=== PATIENT | female | born 1965 | race Caucasian/White ===

== ENCOUNTER 2017-06-02 19:39 | Inpatient (IN) | payer SELFPAY ==
[~2017-06-02] VITALS: Ht 170.2 cm; Wt 46.4 kg
[~2017-06-02 19:39] MED LIST: ASPI81CH43 PO; CLOP75TA28 PO; HYDR-4683 PO; LEV500T PO; MET25T PO; NOR10T GT; Nitroglycerin SL; PAR20T GT; POTA10SO11 PO; TEMA15CA PO
[2017-06-02 23:12] LABS: Eosinophils # (auto) 0 uL; Lymphocytes # (auto) 0.8 uL; Monocytes # (auto) 1.1 uL; Nucleated Red Blood Cells % 0.1 %
[2017-06-02 23:14] LABS: Basophils # (auto) 0.3 uL; Basophils % (auto) 1.2 % (0.0-2.0); Hematocrit 41.1 % (36.0-46.0); Hemoglobin 13.2 g/dL (12.2-16.2); Lymphocytes % (auto) 3.4 % (10.0-50.0); Mean Corpuscular Hemoglobin 25.7 pg (28.0-32.0); Mean Corpuscular Hgb Conc. 32.1 g/dL (32.0-36.0); Mean Platelet Volume 7.6 fL (6.9-10.8); Monocytes % (auto) 4.7 % (0.0-12.0); Neutrophils # (auto) 21.9 uL; Neutrophils % (auto) 90.7 % (37.0-80.0); Platelet Count (auto) 273 10^3/uL (140-450); White Blood Cell 24.2 10^3/uL (4.4-10.8)
[2017-06-02] MEDS ORDERED: ONDANSETRON HCL 4 MG/2 ML VIAL IV ONE (23:15)
[2017-06-02] MEDS ORDERED: VANCOMYCIN 1GM/250ML 250 ML IV ONE (23:15)
[2017-06-02] MEDS ORDERED: HYDROmorphone HCL 2 MG/ML VL IV ONE (23:15)
[2017-06-02] MEDS ORDERED: cefTRIAXone 1GM/50ML D5W 50 ML IV ONE (23:15)
[2017-06-02 23:20] LABS: Red Cell Distribution Width 25.2 % (11.8-14.3)
[2017-06-02 23:39] LABS: Anisocytosis Moderate; Platelet Estimate Adequate
[2017-06-02 23:40] LABS: Hypersegmented Neutrophils Present; Microcytosis Moderate
[2017-06-02 23:42] LABS: Albumin 2.6 g/dL (3.4-5.0); BUN/Creatinine Ratio 22.7; Bilirubin, Total 0.5 mg/dL (0.2-1.0); Calcium 9.1 mg/dL (8.5-10.1); Total Protein 7.8 g/dL (6.4-8.2)
[2017-06-03 00:51] LABS: Urine Bilirubin Negative (Negative); Urine Blood TRACE /uL (Negative); Urine Color Yellow (Yellow); Urine Glucose Normal (Normal); Urine Hyaline Cast FEW /lpf (0 - 2); Urine Ketone TRACE (Negative); Urine Mucus FEW (None Seen); Urine Nitrite Negative (Negative); Urine RBC <1 /hpf (0 - 4); Urine Squamous Epithelial Cell FEW /hpf (<5)
[2017-06-03] MEDS ORDERED: POTASSIUM CHL 20 Meq TABLET PO ONE (01:45)
[2017-06-03] MEDS ORDERED: SODIUM CHLORIDE 0.9% 1,000 ML IV SCH (03:58)
[2017-06-03] MEDS ORDERED: ACETAMINOPHEN 325 MG TAB PO PRN (04:00)
[2017-06-03] MEDS ORDERED: ONDANSETRON HCL 4 MG/2 ML VIAL IV PRN (04:00)
[2017-06-03] MEDS ORDERED: TEMAZEPAM 15 MG CAP PO PRN (04:00)
[2017-06-03] MEDS ORDERED: SODIUM CHLORIDE 0.9% 500 ML IV ONE (04:00)
[2017-06-03] MEDS ORDERED: MORPHINE SULFATE 10 MG/ML INJ 1ML SDV IV PRN (04:00)
[2017-06-03] MEDS ORDERED: KETOROLAC TROMETH 30 MG/ML 1ML VIAL IV PRN (04:00)
[2017-06-03] MEDS ORDERED: NITROGLYCERIN 0.4 MG SL TAB SL PRN (04:00)
[2017-06-03] MEDS: HYDROcodone-ACET 5/325MG TAB PO PRN ×2 (08:54→21:47)
[2017-06-03] MEDS ORDERED: PARoxetine 20 MG TAB PO SCH (10:00)
[2017-06-03] MEDS ORDERED: CLOPIDOGREL BISULFATE 75 MG TAB PO SCH (10:00)
[2017-06-03] MEDS ORDERED: ENOXAPARIN SOD 30 MG/0.3 ML SYRINGE SC SCH (10:00)
[2017-06-03] MEDS ORDERED: ENOXAPARIN SOD 40 MG/0.4 ML SYRINGE SC SCH (10:00)
[2017-06-03] MEDS ORDERED: ASPirin 81 mg TAB PO SCH (10:00)
[2017-06-03] MEDS: METOPROLOL TARTRATE 25 MG TAB PO SCH ×2 (10:36→21:47)
[2017-06-03] MEDS: FAMOTIDINE 20 MG TAB PO SCH ×2 (10:37→21:46)
[2017-06-03] MEDS ORDERED: VANCOMYCIN PER PHARMACY 0 MG IV SCH (11:00)
[2017-06-03 11:24] LABS: Basophils # (auto) 0.1 uL; Hemoglobin 11.3 g/dL (12.2-16.2); Lymphocytes # (auto) 0.8 uL; Mean Platelet Volume 7.4 fL (6.9-10.8); Nucleated Red Blood Cells % 0.1 %; Platelet Count (auto) 261 10^3/uL (140-450); White Blood Cell 24.2 10^3/uL (4.4-10.8)
[2017-06-03 11:26] LABS: Basophils % (auto) 0.4 % (0.0-2.0); Eosinophils # (auto) 0.1 uL; Eosinophils % (auto) 0.3 % (0.0-7.0); Hematocrit 36.4 % (36.0-46.0); Lymphocytes % (auto) 3.5 % (10.0-50.0); Mean Corpuscular Hemoglobin 24.9 pg (28.0-32.0); Mean Corpuscular Hgb Conc. 31.1 g/dL (32.0-36.0); Mean Corpuscular Volume 80.2 fL (80.0-100.0); Monocytes # (auto) 1.2 uL; Monocytes % (auto) 4.8 % (0.0-12.0)
[2017-06-03 11:30] LABS: Red Cell Distribution Width 24.8 % (11.8-14.3)
[2017-06-03 12:02] LABS: BUN/Creatinine Ratio 20.5; Calcium 8.1 mg/dL (8.5-10.1)
[2017-06-03 12:07] LABS: Anisocytosis Moderate; Hypochromia Slight; Platelet Estimate Adequate
[2017-06-03 13:00] VITALS: BP 103/76
[2017-06-03] MEDS: SOD CHL 0.9%/ KCL 20MEQ 1,000 ML IV SCH (13:15)
[2017-06-03] MEDS: VANCOMYCIN 1GM/250ML 250 ML IV SCH ×2 (13:15→23:05)
[2017-06-03] MEDS ORDERED: SILVER SULFADIAZINE 1 % TOPICAL CREAM 50GM TOP SCH (16:00)
[2017-06-03 16:37] VITALS: BP 99/60
[2017-06-03] MEDS ORDERED: BOOST PLUS 8 ounce PO SCH (18:00)
[2017-06-03 20:00] VITALS: BP 113/80
[2017-06-03 21:23] VITALS: BP 113/80
[2017-06-03] MEDS ORDERED: cefTRIAXone 1GM/50ML D5W 50 ML IV SCH (22:00)
[2017-06-04] MEDS: SOD CHL 0.9%/ KCL 20MEQ 1,000 ML IV SCH (01:26)
[2017-06-04 04:31] VITALS: BP 111/76
[2017-06-04 05:17] LABS: Basophils # (auto) 0 uL; Basophils % (auto) 0.1 % (0.0-2.0); Eosinophils # (auto) 0 uL; Eosinophils % (auto) 0.2 % (0.0-7.0); Lymphocytes # (auto) 0.8 uL; Mean Platelet Volume 7.5 fL (6.9-10.8)
[2017-06-04 05:19] LABS: Hematocrit 37.6 % (36.0-46.0); Hemoglobin 11.6 g/dL (12.2-16.2); Lymphocytes % (auto) 3.8 % (10.0-50.0); Mean Corpuscular Hgb Conc. 30.9 g/dL (32.0-36.0); Monocytes # (auto) 1.3 uL; Monocytes % (auto) 6.2 % (0.0-12.0); Neutrophils # (auto) 19.3 uL; Neutrophils % (auto) 89.7 % (37.0-80.0); Nucleated Red Blood Cells % 0.2 %; Platelet Count (auto) 262 10^3/uL (140-450); White Blood Cell 21.5 10^3/uL (4.4-10.8)
[2017-06-04 05:24] LABS: Red Cell Distribution Width 25.1 % (11.8-14.3)
[2017-06-04 05:30] LABS: INR 1.07 (0.9-1.15); Partial Thromboplastin Time 33.8 sec (22.64-33.71); Prothrombin Time 11.7 sec (9.37-12.3)
[2017-06-04 05:49] LABS: Anisocytosis Moderate; Hypochromia Slight; Platelet Estimate Adequate
[2017-06-04 05:51] LABS: Bilirubin, Total 0.5 mg/dL (0.2-1.0); Potassium 4.1 mmol/L (3.5-5.1); Total Protein 6.5 g/dL (6.4-8.2)
[2017-06-04 06:24] LABS: Calcium 7.7 mg/dL (8.5-10.1)
[2017-06-04 07:10] LABS: BUN/Creatinine Ratio 14.3
[2017-06-04 09:00] VITALS: BP 122/75
== END 2017-06-04 09:00 | disposition left against medical advice (07) | DRG 872 ==
LOC: ER 19:41 → TELE 19:42 → TELE-WESTW 06-03 07:59 → TELE-E-ADS 06-03 07:59 → TELE-WESTW 06-03 11:25
PROVIDERS: ADMIT Nurse Practitioner; ATTEND Internal Medicine
DX: A41.9 Sepsis, unspecified organism (principal); E44.0 Moderate protein-calorie malnutrition; R64 Cachexia; E10.621 Type 1 diabetes mellitus with foot ulcer; E87.1 Hypo-osmolality and hyponatremia; L03.115 Cellulitis of right lower limb; N39.0 Urinary tract infection, site not specified; E87.6 Hypokalemia; F12.90 Cannabis use, unspecified, uncomplicated; F17.210 Nicotine dependence, cigarettes, uncomplicated; I10 Essential (primary) hypertension; I25.10 Atherosclerotic heart disease of native coronary artery without angina pectoris; L97.519 Non-pressure chronic ulcer of other part of right foot with unspecified severity; F32.9 Major depressive disorder, single episode, unspecified; Z59.0 Homelessness; Z95.5 Presence of coronary angioplasty implant and graft
CPT/HCPCS: 36415; 73620; 73700; 80048; 80053; 80202; 81001; 83605; 85025; 85610; 85730; 87040; 87077; 87186; 87205; 93926; 96361; 96365; 96368; 96375; J0696; J1885; J2405